=== PATIENT | female | born 1940 | race Caucasian/White ===

== ENCOUNTER 2017-11-18 07:39 | Day surgery (SDC) | payer MEDICARE, BC ==
[~2017-11-18] VITALS: Ht 157.5 cm; Wt 61.2 kg
[2017-11-18] MEDS ORDERED: SODIUM BICARBONATE 4% (2.4MEQ) 5ML VIAL IV ONE (09:09)
[2017-11-18] MEDS ORDERED: IOHEXOL-300 50 ML BOTTLE IV ONE (09:09)
[2017-11-18] MEDS ORDERED: FENTANYL CITRATE/PF 50MCG/ML 2ML VIAL ONE (09:09)
[2017-11-18] MEDS ORDERED: LIDOCAINE HCL/PF 1% 10 MG/ML 5ML VIAL ONE (09:09)
[2017-11-18] MEDS ORDERED: PROPOFOL 200MG/20ML VIAL IV ONE (09:10)
[2017-11-18] MEDS ORDERED: SUCCINYLCHOLINE CHLORIDE 200MG/10ML VIAL IV ONE (09:10)
[2017-11-18] MEDS ORDERED: PHENYLEPHRINE HCL 10 MG/ML 1ML (IV VIAL) IV ONE (09:13)
[2017-11-18] MEDS ORDERED: MIDAZOLAM HCL 2 MG/2 ML VIAL ONE (09:42)
[2017-11-18] MEDS ORDERED: ROCURONIUM BROMIDE 10MG/ML VIAL 5ML IV ONE (09:58)
[2017-11-18] MEDS ORDERED: SPIR100T24 PO (10:07)
[2017-11-18] MEDS ORDERED: ALPR0.5T PO (10:07)
[2017-11-18] MEDS ORDERED: PRAV10TA35 PO (10:07)
[2017-11-18] MEDS ORDERED: CEFAZOLIN SODIUM 1000MG/VIAL ONE (10:45)
[2017-11-18] MEDS ORDERED: NEOSTIGMINE METHYLSULFATE 1MG/ML 10 ML VIAL ONE (10:57)
[2017-11-18] MEDS ORDERED: EPHEDRINE SULFATE 50MG/ML VIAL ONE (10:57)
[2017-11-18] MEDS ORDERED: GLYCOPYRROLATE 0.2 MG/ML 2ML VIAL ONE (10:58)
[2017-11-18] MEDS ORDERED: ONDANSETRON HCL 4MG/2ML VIAL IV PRN (11:15)
[2017-11-18] MEDS ORDERED: HYDROMORPHONE HCL/PF 2MG/ML CPJ IV PRN (11:15)
[2017-11-18 12:09] VITALS: BP 124/63
== END 2017-11-18 14:30 | disposition home or self-care (01) ==
LOC: OR 07:39
PROVIDERS: ATTEND Radiology Diagnostic Radiology
DX: M84.68XA Pathological fracture in other disease, other site, initial encounter for fracture (principal); M40.294 Other kyphosis, thoracic region; M50.30 Other cervical disc degeneration, unspecified cervical region; I25.10 Atherosclerotic heart disease of native coronary artery without angina pectoris; I10 Essential (primary) hypertension; K21.9 Gastro-esophageal reflux disease without esophagitis; F41.9 Anxiety disorder, unspecified; Z79.899 Other long term (current) drug therapy; Z98.61 Coronary angioplasty status; Z98.890 Other specified postprocedural states; Z88.8 Allergy status to other drugs, medicaments and biological substances; Z87.891 Personal history of nicotine dependence; Z83.3 Family history of diabetes mellitus
CPT/HCPCS: 22513; J0330; J0690; J1170; J2250; J2370; J2405; J2710; J3010; J3490; J7040; J7050; Q9967; 22511; 22512; J2704